=== PATIENT | female | born 1965 | race Caucasian/White ===

== ENCOUNTER 2017-08-11 20:44 | Emergency (ER) | payer OTHER ==
[2017-08-11 20:57] VITALS: BMI 30.2
--- NOTE | 2017-08-11 21:08 | C.PDOC ---
History Of Present Illness Nadeen Oneal is a 51 year old female, with no significant past medical history , who presents to the emergency department complaining of a constant crampy right lower sided abdominal pain onset since this morning. Patient states pain has been getting progressively worst throughout the day. She reports similar pain in the past and was seen by her paint tinter who did a FURNITURE MANAGER work up and told her it was nothing gynecologic and advised her to see a pea viner mechanic. Patient took x2 ibuprofen with no relief of symptoms. She denies any fever, chills, nausea, vomit, diarrhea, constipation or urinary symptoms. She has no vaginal bleeding or discharge. No further medical complaints. PMD: None provided. Time Seen by Provider: 08/11/17 20:51 Chief Complaint (Nursing): Abdominal Pain History Per: Patient History/Exam Limitations: no limitations Onset/Duration Of Symptoms: Hrs (this morning.) Current Symptoms Are (Timing): Still Present Location Of Pain/Discomfort: RLQ Radiation Of Pain To:: None Quality Of Discomfort: Cramping Associated Symptoms: denies: Fever, Chills, Nausea, Vomiting, Diarrhea, Constipation, Urinary Symptoms Past Medical History Reviewed: Historical Data, Nursing Documentation, Vital Signs Vital Signs: Last Vital Signs Temp 98.1 F 08/11/17 22:58 Pulse 69 08/11/17 22:58 Resp 18 08/11/17 22:58 BP 112/72 08/11/17 22:58 Pulse Ox 98 08/11/17 22:58 - Medical History PMH: No Chronic Diseases Surgical History: No Surg Hx Family History: States: Unknown Family Hx - Social History Hx Alcohol Use: No Hx Substance Use: No Review Of Systems Constitutional: Negative for: Fever, Chills Gastrointestinal: Positive for: Abdominal Pain (RLQ crampy). Negative for: Nausea, Vomiting, Diarrhea, Constipation Genitourinary: Negative for: Dysuria, Frequency, Incontinence Physical Exam - Physical Exam Appears: Other (uncomfortable. Prefers to sit hunched over. ) Skin: Normal Color, Warm, Dry Head: Atraumatic, Normacephalic Eye(s): bilateral: Normal Inspection, PERRL, EOMI Neck: Normal ROM Chest: Symmetrical Cardiovascular: Rhythm Regular Respiratory: Normal Breath Sounds, No Wheezing Gastrointestinal/Abdominal: Bowel Sounds, Tenderness (RLQ and suprapubic. ), Distention Back: Normal Inspection, No CVA Tenderness Extremity: Normal ROM, No Deformity, No Swelling Neurological/Psych: Oriented x3 ED Course And Treatment - Laboratory Results Result Diagrams: 08/11/17 21:13 08/11/17 21:13 Lab Interpretation: Normal - CT Scan/US CT abdomen and pelvis Other Rad Studies (CT/US): Read By Radiologist, Radiology Report Reviewed CT/US Interpretation: Impression: Constipation with fecalization of distal and terminal ileum: no acute solid visceral abnormality: fibroid uterus with probable exophytic fibroid in the right adnexal region. Reevaluation Time: 23:15 Reassessment Condition: Unchanged Medical Decision Making Medical Decision Making: Initial Impression: abdominal pain Initial Plan: --Abd Pelvis PO & IV contrast [CT] --CMP --Lipase --CBC w/ differential --Bentyl 20 mg IM --Omnipaque 240 50 ml PO --Sodium Chloride 1,000 ml IV 1,000 mls/hr --HCG, Qualitative urine --Urinalysis --Reevaluation Disposition - Disposition Referrals: Marcio Bryan MD [Staff Provider] - Disposition: HOME/ ROUTINE Disposition Time: 23:24 Condition: FAIR Prescriptions: Dicyclomine [Bentyl] 20 mg PO QID PRN #30 tab PRN Reason: Pain, Moderate (4-7) Instructions: Constipation in Adults, High Fiber Diet Forms: [facility] (Lao) - Clinical Impression Clinical Impression: Constipation - Scribe Statement Yazan Marques
[2017-08-11 21:15] LABS: HCG,QUALITATIVE URINE NEGATIVE (NEGATIVE); SQUAMOUS EPITHIAL < 1 /hpf (0-5); URINE BILIRUBIN NEGATIVE (NEGATIVE); URINE BLOOD NEGATIVE (NEGATIVE); URINE CLARITY Clear (Clear); URINE COLOR Yellow (YELLOW); URINE GLUCOSE (UA) NORMAL (Normal); URINE LEUKOCYTE ESTERASE TRACE Leu/uL (Negative); URINE PROTEIN 1+ mg/dL (NEGATIVE)
[2017-08-11] MEDS ORDERED: Sodium Chloride 0.9% 1,000 ML ONE (21:17)
[2017-08-11] MEDS: Sodium Chloride 0.9% 1,000 ML IV ONE (21:20)
[2017-08-11 21:21] LABS: BASO % 0.4 % (0.0-2.0); EOS # 0.2 K/uL (0.0-0.7); EOS % 2.3 % (0.0-4.0); HEMOGLOBIN 12.6 g/dL (11.0-16.0); LYMPH # 2.7 K/uL (1.0-4.3); MEAN CELL VOLUME 90.3 fL (81.0-99.0); MEAN CORPUSCULAR HEMOGLOBIN 30.6 pg (27.0-31.0); MEAN CORPUSCULAR HGB CONC 33.9 g/dL (33.0-37.0); MEAN PLATELET VOLUME 8.4 fL (7.2-11.7); MONO # 0.5 K/uL (0.0-0.8); NEUT # 3.3 K/uL (1.8-7.0); NEUT % 49.3 % (50.0-75.0); NRBC % 0.1 % (0.0-2.0); RBC 4.13 Mil/uL (3.80-5.20); RED CELL DISTRIBUTION WIDTH 13.5 % (11.5-14.5); WHITE BLOOD COUNT 6.6 K/uL (4.8-10.8)
[2017-08-11] MEDS ORDERED: Iohexol 240 (50 ml) ONE (21:26)
[2017-08-11] MEDS: Iohexol 240 (50 ml) PO STA (21:29)
[2017-08-11 21:30] LABS: ALB/GLOB RATIO 1.7 (1.0-2.1); ALBUMIN 4.3 g/dL (3.5-5.0); ALT/SGPT 40 U/L (9-52); AST/SGOT 22 U/L (14-36); BLOOD UREA NITROGEN 19 mg/dL (7-17); CALCIUM 8.7 mg/dl (8.6-10.4); GFR AFRICAN-AMERICAN > 60; GFR NON-AFRICAN AMERICAN > 60; LIPASE 171 U/L (23-300)
[2017-08-11 22:59] VITALS: BP 112/72; PULSE 69; RESP 18; TEMP 98.1; O2SAT 98
--- NOTE | 2017-08-11 23:11 | CT ---
EXAM: CT Abdomen and Pelvis With Intravenous Contrast EXAM DATE/TIME: 08/11/2017 9:27 PM CLINICAL HISTORY: 51 years old, female; Pain; Other: Pelvis and rlq; Patient HX: Allergic to iodine; Additional info: Abd pain TECHNIQUE: Axial computed tomography images of the abdomen and pelvis with intravenous contrast. All CT scans at this facility use one or more dose reduction techniques, viz.: automated exposure control; ma/kV adjustment per patient size (including targeted exams where dose is matched to indication; i.e. head); or iterative reconstruction technique. Coronal and sagittal reformatted images were created and reviewed. CONTRAST: 100 mL of visipaque administered intravenously. COMPARISON: There are no prior studies for comparison. FINDINGS: Lower thorax: Heart size is normal. There is dependent atelectasis and scarring at the lung bases ABDOMEN: Liver: unremarkable Gallbladder and bile ducts: unremarkable Pancreas: unremarkable Spleen: Spleen is unremarkable. There is an accessory spleen in the left upper quadrant. Adrenals: unremarkable Kidneys and ureters: unremarkable Stomach and bowel: Stomach is partially distended. Rotation is normal. Small bowel is incompletely opacified with oral contrast. There is no obstruction. There is fecalization of the distal and terminal ileum. Appendix is is unremarkable. Moderately large amount of stool throughout the colon. Appendix: See stomach and bowel PELVIS: Bladder: unremarkable Reproductive: There is scattered uterine calcifications. There is a coarsely calcified right adnexal mass. Left adnexa is unremarkable. ABDOMEN and PELVIS: Intraperitoneal space: There is no free air or free fluid. Bones/joints: There are degenerative changes in the osseus structures. Soft tissues: There are calcified granulomas in the buttocks. There is a very small fat containing umbilical hernia. Vasculature: Vascular structures are unremarkable. Lymph nodes: There is no pathologic adenopathy. IMPRESSION: Constipation with fecalization of distal and terminal ileum; no acute solid visceral abnormality; fibroid uterus with probable exophytic fibroid in the right adnexal region Additional nonemergent findings as described above.
== END 2017-08-11 23:36 | disposition home or self-care (01) ==
LOC: C.ER 20:44
DX: K59.00 Constipation, unspecified (principal)
CPT/HCPCS: 74176; 80053; 81001; 83690; 84703; 85025; 96360; 96372; 99284; J0500; J7040; Q9966